=== PATIENT | female | born 1960 | race Caucasian/White ===

== ENCOUNTER 2016-09-20 08:29 | Emergency (ER) ==
--- NOTE | 2016-09-20 09:50 | PROVIDER DOCUMENTATION ---
HPI-Rash/Wound/ReCheck - General Chief Complaint: Insect Bite/Sting Stated Complaint: SPIDER BITE Time Seen by Provider: 09/20/16 09:06 Allergies/Adverse Reactions: Allergies Allergy/AdvReac Type Severity Reaction Status Date / Time metoclopramide HCl * Allergy Severe FATIGUE Verified 09/20/16 09:07 [From Reglan] levofloxacin Allergy ITCHING Verified 09/20/16 09:07 Home Medications: Home Medication List Medication Instructions Recorded Confirmed Last Taken Type Carisoprodol [Soma] 350 mg PO BID 06/03/12 09/20/16 09/20/16 History Insulin Aspart [Novolog] 12 unit SQ TID AC 06/03/12 09/20/16 09/20/16 History Metformin [Glucophage] 500 mg PO TID 06/23/14 09/20/16 09/20/16 History Insulin Glargine [Lantus] 30 unit SUBQ QHS 01/30/15 09/20/16 09/19/16 History Losartan Potassium 100 mg PO DAILY 09/28/15 09/20/16 09/20/16 History Aspirin 81 mg PO DAILY #100 chewtab 10/05/15 09/20/16 09/20/16 Rx Oxycodone HCl/Acetaminophen 1 tab PO TID PRN 01/30/16 09/20/16 03/08/16 05:30 History [Percocet 10-325 mg Tablet] Acyclovir [Zovirax] 800 mg PO 5XDAY #35 tablet 09/20/16 Unknown Rx - History of Present Illness-Dermatology Nature of Presenting Problem: pt presents with rash to left thorax x2 wks that is painful and is causing pain with deep inspiration. Denies fever or drainage. Location: reports: torso Body-Front/Back: 1 - vesicular rash Quality: reports: burning, painful Severity: reports: moderate Onset/Duration: reports: other (2wks) Timing: reports: constant Context/Associated Symptoms: reports: blisters, rash Exposure: reports: unknown cause Locality of [place]urance: Home Similar Symptoms Previously?: No Recently seen or treated by another doctor?: No Review of Systems - Adult - REVIEW OF SYSTEMS - ADULT Constitutional: denies: chills, fever Eyes: denies: blurred vision, double vision Cardiovascular: reports: no symptoms reported Respiratory: reports: no symptoms reported Integumentary: reports: rash, skin sores/ulcer All Other Systems: Reviewed and Negative Past History - Adult - PAST MEDICAL HISTORY-ADULT Review of Records: reports: Old Records Reviewed, Nursing Assessment Review, Medications Reviewed Major Childhood Illnesses: reports: denies history Cardiovascular: reports: HTN, other (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 heart) Gastrointestinal: reports: cancer (throat) Musculoskeletal: reports: arthritis, chronic pain Neurological: reports: headaches/migraines Endocrine/Immune: reports: Diabetes Additional History: cancer nose and throat - PRIOR SURGERIES/PROCEDURES Surgical/Procedure History: reports: appendectomy, cholecystectomy, hysterectomy , BTL - PRIOR HOSPITALIZATIONS Prior Hospitalizations: reports: none - IMMUNIZATION STATUS Childhood Immunizations: See Nurse Assessment Flu Vaccine: See Nurse Assessment - FAMILY HISTORY Family History: reviewed, not pertinent - SOCIAL HISTORY Smoking: non-smoker Living Situation: family Physical Exam-General - PHYSICAL EXAM-ADULT Initial Vital Signs Reviewed: Yes - CONSTITUTIONAL General Appearance: appears well, alert, no apparent distress - EYES Eyes: PERRL/EOMI, pink conjunctivae - HEAD, EARS, NOSE, MOUTH & THROAT HENMT: normocephalic/atraumatic, moist mucous membranes - NECK Neck: non-tender, full range of motion, supple - RESPIRATORY Respiratory: chest non-tender, lungs clear, normal breath sounds - CARDIOVASCULAR Cardiovascular: regular rate, rhythm, no edema - MUSCULOSKELETAL Back Exam: normal inspection, no CVA tenderness, no vertebral tenderness Extremity: normal gait, normal inspection - SKIN Integumentary: rash (vesicular rash on erythematous base located at left posterior thorax with respect to midline) - NEUROLOGIC Neurologic: grossly normal, no motor/sensory deficits - PSYCHIATRIC Psych/Mental Status: normal thought content, normal thought process Progress - PLAN OF CARE/RESULTS Progress/Plan/Lab Results: Vital Signs Temp Pulse Resp BP Pulse Ox 09/20/16 08:36 97.8 F 91 H 16 168/90 99 metoclopramide HCl * [From Reglan] Allergy (Severe, Verified 09/20/16 09:07) FATIGUE PANIC ATTACKS levofloxacin Allergy (Verified 09/20/16 09:07) ITCHING Carisoprodol [Soma] 350 mg PO BID 11/20/12 Insulin Aspart [Novolog] 12 unit SQ TID AC 06/03/12 Metformin [Glucophage] 500 mg PO TID 06/23/14 Insulin Glargine [Lantus] 30 unit SUBQ QHS 01/30/15 Losartan Potassium 100 mg PO DAILY 09/28/15 Aspirin 81 mg PO DAILY #100 chewtab 10/05/15 Oxycodone HCl/Acetaminophen [Percocet 10-325 mg Tablet] 1 tab PO TID PRN Departure - Departure Time of Disposition Order: 09:48 DIAGNOSIS: Shingles Qualifiers: Herpes zoster complications: without complications Qualified Code(s): B02.9 - Zoster without complications Disposition: HOME 01 Certified Medical Emergency: Emergent Condition: Good Additional Instructions: ED Follow Up Instructions: You have been treated by a care provider in the Emergency Department. These instructions are being provided to you so you can have an understanding of how to care for yourself upon discharge. Upon discharge from the Emergency Department, you are responsible for making arrangements for follow-up care by a physician of your choice. Take all prescribed medications as directed. Return to the Emergency Department immediately for any new or worsening symptoms. You may call the Physician Referral phone number at [phone] to obtain a list of Physicians who are taking new patients. Prescriptions: Acyclovir [Zovirax] 800 mg PO 5XDAY #35 tablet Attestation - Physician/ NILO Attestation Patient care was provided by Advanced Practice Provider:: Yes Advanced Practice Provider:: Melia Toussaint Advanced Practice Provider documentation review:: The Mid-level provider documentation, treatment plan and medical decision making was reviewed by the physician who agrees with all treatment and medical decision making by the MLP.
[2016-09-20 10:11] VITALS: BP 145/82
== END 2016-09-20 10:11 | disposition home or self-care (01) ==
LOC: ED 08:29
DX: B02.9 Zoster without complications (principal); R21 Rash and other nonspecific skin eruption; S20.422A Blister (nonthermal) of left back wall of thorax, initial encounter; M54.6 Pain in thoracic spine; I10 Essential (primary) hypertension; M19.90 Unspecified osteoarthritis, unspecified site; G89.29 Other chronic pain; E11.9 Type 2 diabetes mellitus without complications; Z79.899 Other long term (current) drug therapy; Z79.82 Long term (current) use of aspirin; Z79.4 Long term (current) use of insulin; Z85.20 Personal history of malignant neoplasm of unspecified respiratory organ
CPT/HCPCS: 99282

== ENCOUNTER 2019-05-27 13:29 | Inpatient (IN) ==
[2019-05-27] MEDS ORDERED: MORPHINE IV PRN (14:34)
[2019-05-27 14:49] LABS: BASO# 0.05 X1000 (0.0-0.2); BASO% 0.3 % (0.0-0.8); EOS# 0.03 X1000 (0.0-0.7); EOS% 0.2 % (0.0-10.0); HEMATOCRIT 48.9 % (37.0-47.0); HEMOGLOBIN 16.2 g/dL (12.0-16.0); IMM GRAN# 0.04 X1000 (0.0-0.04); IMM GRAN% 0.3 % (0.0-0.5); LYMPH# 2.13 X1000 (1.2-3.4); LYMPH% 14.9 % (20.5-51.1); MCH 27.7 PG (27-31); MCHC 33.1 g/dL (33-37); MCV 83.6 FL (81-99); MONO# 0.69 X1000 (0.11-0.59); MONO% 4.8 % (1.7-9.3); MPV 9.7 FL (7.4-10.4); NEUT# 11.39 X1000 (1.4-6.5); NEUT% 79.5 % (42.2-75.2); PLT 384 X1000 (130-400); RBC 5.85 XMIL (4.2-5.4); RDW 13.8 % (11.5-14.5); WBC 14.33 X1000 (4.8-10.8)
[2019-05-27] MEDS: ZOFRAN IV PRN (14:56)
[2019-05-27 15:45] LABS: URINE SOURCE CLEAN CATCH
--- NOTE | 2019-05-27 15:51 | Diag Imaging Result Doc PS360 ---
EXAM: FLAT/UPRIGHT ABD/1 VIEW CHEST HISTORY: Abd pain new patient TECHNIQUE: Three views COMPARISON: None. FINDINGS: The lungs are well expanded. No cardiomegaly. No pneumonia. No free air beneath the diaphragm. There are dilated small bowel loops in the mid abdomen with air-fluid levels. Small amount of air in the proximal colon. There are surgical clips in the lower abdomen and pelvis. IMPRESSION: Early or partial small bowel obstruction Electronically signed by Freedom Vo 05/27/2019 3:49 PM
[2019-05-27 15:52] LABS: UR EPITHELIAL CELLS <10 /HPF (<10); URINE BACTERIA NEGATIVE /HPF; URINE RBC <10 /HPF (<10); URINE WBC <10 /HPF (<10)
[2019-05-27 15:53] LABS: BILIRUBIN URINE NEGATIVE (NEGATIVE); BLOOD URINE NEGATIVE (NEGATIVE); COLOR YELLOW; GLUCOSE URINE >1000 mg/dL (NEGATIVE); KETONE URINE 80 mg/dL (NEGATIVE); LEUKOCYTES URINE NEGATIVE (NEGATIVE); NITRITE URINE NEGATIVE (NEGATIVE); PH URINE 5.5; PROTEIN URINE 100 mg/dL (NEGATIVE); SP GRAVITY URINE 1.042; TURBIDITY URINE CLEAR (CLEAR); UROBILINOGEN URINE NORMAL (NORMAL)
[2019-05-27] MEDS: PROTONIX IV SCH (15:57)
[2019-05-27] MEDS: SODIUM CHLORIDE 0.9% INJ SCH (15:57)
[2019-05-27] MEDS: SODIUM CHLORIDE 0.9% INJ PRN (15:57)
[2019-05-27] MEDS: LOVENOX SUBQ SCH (15:57)
[2019-05-27] MEDS: PHENERGAN IV PRN ×2 (15:57→21:53)
[2019-05-27 16:01] LABS: AGAP 21; ALB/GLOB RATIO 1.5; ALBUMIN 4.7 g/dL (3.5-5.0); ALKALINE PHOSPHATASE 99 U/L (32-104); BUN 12 mg/dL (8-22); CALCIUM 10.2 mg/dL (8.8-10.2); CHLORIDE 96 mmol/L (98-107); COSMO 291; CREATININE 0.8 mg/dL (0.5-0.9); ESTIMATED GFR > 60; GOT 36 U/L (10-30); GPT 32 U/L (10-36); POTASSIUM 4.7 mmol/L (3.5-5.1); SODIUM 136 mmol/L (136-145); TCO2 19 mmol/L (25-35); TOTAL BILIRUBIN 0.56 mg/dL (0.20-1.00); TOTAL PROTEIN 7.9 g/dL (6.3-8.3)
[2019-05-27 16:02] LABS: GLUCOSE 441 mg/dL (70-104)
--- NOTE | 2019-05-27 16:08 | Diag Imaging Result Doc PS360 ---
EXAM: CT ABDOMEN/PELVIS W/O CONTRAST INDICATION: Abd pain new patient TECHNIQUE: This exam was performed using automated exposure control, adjustment of mA or kV according to patient size, and/or use of iterative reconstruction technique. COMPARISON: 06/03/2012 FINDINGS: There are a few miniscule nodules along the major fissure on the left that statistically most likely represent noncalcified granulomata. There is a calcified granuloma in the spleen. There is no splenomegaly. There has been a prior cholecystectomy. There is trace ascites tracking around the liver. There is questionable minimal hepatic steatosis. The liver is grossly unremarkable, otherwise. There is pancreatic atrophy. The pancreas is unremarkable, otherwise. The adrenal glands appear normal. The kidneys are grossly unremarkable. The urinary bladder is largely nondistended and is unremarkable, otherwise. There has been a prior hysterectomy. There are a few moderately distended loops of small bowel in the mid abdomen and right lower quadrant. There is swirling of the small bowel in the right lower quadrant and there is a loop of small bowel that contains feculent material indicating slow bowel transit. There is surrounding mild stranding in this region. This is suggestive of an early small bowel obstruction. The transition point appears to be in the right lower quadrant. The colon is decompressed. The remainder of the GI tract is grossly unremarkable. IMPRESSION: 1.Findings suspicious for an early small bowel obstruction with a likely transition point in the right lower quadrant. Please see above discussion. 2.Other incidental/nonacute findings detailed above. Electronically signed by Marquis Kim 05/27/2019 4:05 PM
[2019-05-27] MEDS ORDERED: HUMULIN R IV ONE (16:28)
[2019-05-27] MEDS: HUMALOG SUBQ SCH ×2 (16:34→20:49)
[2019-05-27] MEDS: POTASSIUM CHLORIDE 10 MEQ in 1/2 NS 1,000 ML IV SCH (16:34)
[2019-05-27] MEDS ORDERED: DILAUDID PO PRN (16:38)
[2019-05-27] MEDS ORDERED: LEVAQUIN 750 MG/D5W 750 MG/150 ML IVPB IV SCH (17:00)
[2019-05-27 17:05] LABS: ALLEN TEST YES; BE -2.2 mmoll (-3.0-3.0); BLOOD TYPE ARTERIAL; HCO3-(ACT) 23.1 mmoll (20.0-26.0); METHB 0.9 % (0.0-1.5); PCO2(98.6) 34 mmHg (35-45); PO2(98.6) 72 mmHg (60-100); SAMPLE BLOOD; SAO2 96.6 % (95.0-100.0); THB 16.7 g/dL (11.5-17.4); pH(98.6) 7.41 (7.35-7.45)
[2019-05-27 17:07] LABS: MODALITY ROOM AIR
[2019-05-27] MEDS: ZOSYN 3.375 GM in NS 50 ML IV SCH (17:48)
[2019-05-27] MEDS: DILAUDID IV PRN (20:35)
--- NOTE | 2019-05-27 20:50 | HISTORY AND PHYSICAL ---
HISTORY OF PRESENT ILLNESS: Ms. Hdz, who is a 59-year-old white female, known case of insulin- dependent diabetes, comes to the office with severe abdominal pain, recurrent vomiting. She was in severe pain, was admitted. She has a history of uncontrolled diabetes. She also has chronic pain syndrome, and she had about 9 back surgeries in the past. She had a total knee replacement and had hysterectomy. Initially she had tubal ligation. She also had cholecystectomy done. SOCIAL HISTORY: She is a nonsmoker, does not drink. ALLERGIES: She is allergic to levofloxacin and metoclopramide. REVIEW OF SYSTEMS: Other than abdominal pain. She has severe nausea and has severe vomiting. No evidence of apparent constipation. No evidence of hematemesis. PHYSICAL EXAMINATION: VITAL SIGNS: Reveal temperature normal, pulse 106 per minute, respiratory rate 20 per minute, blood pressure 186/93. HEENT: Head normocephalic. Pupils PERRLA. Fundus examination not done. NECK: Supple. JVP normal. ENT examination unremarkable. There is no evidence of lymphadenopathy, thyroid enlargement, pedal edema, calf tenderness, anemia, cyanosis or clubbing. Pedal pulses well felt. BREAST EXAM: Not done. CHEST: Normal inspection. LUNGS: Clear to auscultation. PMI in the normal position. HEART: Sounds normal. No murmur, gallop or rub noted. ABDOMEN: Distended. Hernial orifices normal. Revealed the scars from previous surgery. No guarding, rigidity, but definite tenderness in the right lower quadrant as well as in the epigastric area. Bowel sounds are absent. RECTAL EXAM: Deferred. No free fluid noted.. CENTRAL NERVOUS SYSTEM: Higher functions. Patient is apprehensive. Cranial nerves normal. Motor and sensory system examination and deep tendon reflexes normal. Plantars downgoing. Skull and spine examination normal for age except for severe back pain. SLR positive. No cerebellar signs or signs of meningeal irritation. Locomotor exam unremarkable except for knee pains, and she has some dehydration. CLINICAL IMPRESSION: Severe abdominal pain, vomiting, possible small bowel obstruction. Patient has diabetes. We will try to control the diabetes. Also, I do not think she has diabetic ketoacidosis; however, we will continue to watch her sugar. cc: Olayinka Bullock MD
[2019-05-27] MEDS ORDERED: HUMULIN R SUBQ SCH (21:00)
--- NOTE | 2019-05-27 22:17 | Diag Imaging Result Doc PS360 ---
EXAM: CHEST/ABD TUBE PLACEMENT INDICATION: tube placement TECHNIQUE: One view COMPARISON: 05/27/2019 FINDINGS: The newly placed NG tube projects below the diaphragm and is assumed to be in the lumen of the stomach in the expected position. The chest is grossly stable as compared to the previous study. There are a few gas-distended loops of small bowel in the upper abdomen. IMPRESSION: Newly placed NG tube in the expected position as described. Electronically signed by Marquis Kim 05/27/2019 10:15 PM
[2019-05-28] MEDS: ZOSYN 3.375 GM in NS 50 ML IV SCH ×5 (01:12→22:30)
[2019-05-28] MEDS: DILAUDID IV PRN ×4 (01:12→22:02)
--- NOTE | 2019-05-28 03:45 | GENERAL SURGERY CONSULTATION ---
DATE: 05/27/2019 HISTORY OF PRESENT ILLNESS: This is a 59-year-old female with extensive surgical history. She has had open cholecystectomy, she has had an open hysterectomy and appendectomy, she has had a hiatal hernia repair. She presents with colicky abdominal pain the last 48 to 72 hours with some nausea and vomiting. CT scan was obtained that suggest partial obstruction. She has also, apparently, had episodes for which she was treated for this as an inpatient nonoperative with NG tube decompression in her past. She is admitted to Dr. Bullock and I was consulted for this. MEDICAL HISTORY: Hypertension, she has chronic pain, diabetes, gastroesophageal reflux disease. SURGICAL HISTORY: Numerous previous abdominal surgeries as noted in her HPI. SOCIAL HISTORY: History of smoking. No current alcohol. Her attentive is here with her. REVIEW OF SYSTEMS: A 10-point review of systems was performed and negative, otherwise that what is mentioned in HPI. FAMILY HISTORY: Reviewed and negative for cancer. PHYSICAL EXAMINATION: Vital signs: On exam, she is afebrile. Pulse low 100s, blood pressure 186/93, oxygen 95% on room air, she is 203 pounds. 5 feet 6 inches. General: She is alert, in no acute distress. HEENT: No scleral icterus. No cervical mass. Cardiovascular: Normal rate. Pulmonary: No increased work of breathing. Abdomen: Has a midline scar. No palpable hernias in the groins or in the midline. It is distended but soft. There is no peritonitis. She describes some tenderness in the lower quadrants, but she palpates her own abdomen. Integument: Warm and dry. Psychiatric: Appropriate affect. Neurologic: No gross deficits. Peripheral vascular: She does have lower extremity edema. LABS: White count is 14, hematocrit is 48, platelets 384,000. ABG was reviewed. Her lactate is 1.8. Creatinine 0.8. Her glucose was 441. LFTs are normal with a mild elevation in her AST. Urinalysis shows glucose but leukocytes. I reviewed her CT scan. ASSESSMENT/PLAN: A 59-year-old female with extensive surgical history. She clinically and on radiography appears to have a bowel obstruction. I have recommended NG tube decompression, IV fluids and bowel rest. We discussed the natural history of bowel obstruction, possibility of surgical intervention if no improvement or if her exam worsens. I have discussed with the nurses her care as well. We will continue to follow along. cc: MD Olayinka Mancia MD
[2019-05-28] MEDS: POTASSIUM CHLORIDE 10 MEQ in 1/2 NS 1,000 ML IV SCH ×2 (05:59→11:57)
[2019-05-28] MEDS: PHENERGAN IV PRN ×3 (06:00→16:54)
[2019-05-28] MEDS: HUMALOG SUBQ SCH ×4 (06:04→22:05)
[2019-05-28] MEDS ORDERED: HALL'S COUGH LOZENGE MT PRN (06:42)
[2019-05-28] MEDS: SODIUM CHLORIDE 0.9% INJ SCH ×2 (11:14→16:32)
--- NOTE | 2019-05-28 11:21 | PROGRESS NOTE ---
DATE: 05/28/2019 Ms. Hdz is feeling somewhat better. The NG tube aspiration is helping her. We are going to repeat her electrolytes today and tomorrow. Her general condition has improved. Abdomen is soft, less tender today. We do not have the results on the abdominal x-ray yet. Will continue with the current management. cc: Olayinka Bullock MD
[2019-05-28 12:37] LABS: AGAP 12; BUN 16 mg/dL (8-22); CALCIUM 8.9 mg/dL (8.8-10.2); CHLORIDE 97 mmol/L (98-107); COSMO 283; CREATININE 0.8 mg/dL (0.5-0.9); ESTIMATED GFR > 60; GLUCOSE 372 mg/dL (70-104); POTASSIUM 4.2 mmol/L (3.5-5.1); SODIUM 133 mmol/L (136-145); TCO2 24 mmol/L (25-35)
[2019-05-28] MEDS: LOVENOX SUBQ SCH (16:32)
[2019-05-28] MEDS: PROTONIX IV SCH (16:32)
--- NOTE | 2019-05-28 18:34 | GENERAL SURGERY PROGRESS NOTE ---
DATE: 05/28/2019 SUBJECTIVE: Feeling better with nasogastric tube decompression overnight, still intermittent colicky pains. She is passing gas. No fevers. OBJECTIVE: Vital signs: Pulse 83, blood pressure 124/59, oxygen saturation 92% on room air. General: She is alert in no acute distress. Cardiovascular: Normal rate. Pulmonary: No increased work of breathing. Abdomen: Soft, much less distended, nontender. No new labs this morning. ASSESSMENT AND PLAN: This is a 59-year-old female admitted with partial bowel obstruction. Clinically, it seems much improved with her NG tube putting out gastric and feculent-appearing output. We will continue NG tube decompression today. If she continues to have reliable bowel function and no pain, we will remove the tube tomorrow. Advance diet to clears. I have discussed the plan with the patient. She understands. cc: MD Olayinka Mancia MD
[2019-05-28] MEDS: ZOFRAN IV PRN (22:01)
[2019-05-29] MEDS: PHENERGAN IV PRN ×3 (00:25→15:02)
[2019-05-29] MEDS: POTASSIUM CHLORIDE 10 MEQ in 1/2 NS 1,000 ML IV SCH ×2 (03:04→09:02)
[2019-05-29] MEDS: DILAUDID IV PRN ×3 (03:07→19:59)
[2019-05-29] MEDS: ZOSYN 3.375 GM in NS 50 ML IV SCH ×3 (05:04→16:56)
[2019-05-29] MEDS: HUMALOG SUBQ SCH ×4 (06:46→20:01)
[2019-05-29 07:55] LABS: BASO# 0.05 X1000 (0.0-0.2); BASO% 0.4 % (0.0-0.8); EOS# 0.06 X1000 (0.0-0.7); EOS% 0.5 % (0.0-10.0); HEMATOCRIT 43.5 % (37.0-47.0); HEMOGLOBIN 14.1 g/dL (12.0-16.0); IMM GRAN# 0.03 X1000 (0.0-0.04); IMM GRAN% 0.3 % (0.0-0.5); LYMPH# 3.38 X1000 (1.2-3.4); LYMPH% 29.2 % (20.5-51.1); MCH 28.5 PG (27-31); MCHC 32.4 g/dL (33-37); MCV 87.9 FL (81-99); MONO# 0.63 X1000 (0.11-0.59); MONO% 5.4 % (1.7-9.3); MPV 9.9 FL (7.4-10.4); NEUT# 7.44 X1000 (1.4-6.5); NEUT% 64.2 % (42.2-75.2); PLT 320 X1000 (130-400); RBC 4.95 XMIL (4.2-5.4); RDW 14.3 % (11.5-14.5); WBC 11.59 X1000 (4.8-10.8)
[2019-05-29 08:09] LABS: AGAP 18; BUN 15 mg/dL (8-22); CALCIUM 8.8 mg/dL (8.8-10.2); CHLORIDE 96 mmol/L (98-107); COSMO 286; CREATININE 0.8 mg/dL (0.5-0.9); ESTIMATED GFR > 60; GLUCOSE 329 mg/dL (70-104); POTASSIUM 4.2 mmol/L (3.5-5.1); SODIUM 136 mmol/L (136-145); TCO2 22 mmol/L (25-35)
[2019-05-29] MEDS: SODIUM CHLORIDE 0.9% INJ PRN ×2 (08:59→15:02)
--- NOTE | 2019-05-29 12:20 | Diag Imaging Result Doc PS360 ---
EXAM: FLAT/UPRIGHT ABD/1 VIEW CHEST INDICATION: SBO TECHNIQUE: 3 views COMPARISON: 05/27/2019 FINDINGS: The NG tube tip projects below the diaphragm and is assumed to be in the lumen of the stomach. The small bowel distention seen previously appears to have improved. There is still patchy small bowel gas present. There is no evidence of large volume free abdominal gas. There is suggestion of mild subsegmental atelectasis at the lung bases. The lungs are grossly clear, otherwise. There is no discrete pleural fluid collection or pneumothorax. The cardiomediastinal silhouette and central vasculature are grossly unremarkable. IMPRESSION: Interval improvement of gaseous distention of small bowel. Electronically signed by Marquis Kim 05/29/2019 12:17 PM
--- NOTE | 2019-05-29 13:03 | PROGRESS NOTE ---
DATE: 05/29/2019 SUBJECTIVE: Ms. Hdz is feeling somewhat better. The NG tube return is still brownish and probably has some fecal material it looks like. OBJECTIVE: Lungs: Her lungs are clear. Abdomen: The abdomen is still operator gin in the right paraumbilical and supraumbilical area. LABS: Urine culture grew mixed devyn and CBC, showed decrease in white count 11.59, hemoglobin is 14.1. Electrolytes are normal. Blood sugar is still a little bit on the higher side. It runs around 300. ASSESSMENT AND PLAN: She has significant diabetes. We are keeping her on sliding scale so that we do not induce any hypoglycemia. I am going to order an abdominal x-ray on her today and repeat the electrolytes. cc: Olayinka Bullock MD
[2019-05-29] MEDS: SODIUM CHLORIDE 0.9% INJ SCH (15:02)
[2019-05-29] MEDS: PROTONIX IV SCH (15:02)
[2019-05-29] MEDS: LOVENOX SUBQ SCH (15:03)
--- NOTE | 2019-05-29 21:05 | GENERAL SURGERY PROGRESS NOTE ---
DATE: 05/29/2019 SUBJECTIVE: She is doing well. She has had flatus and a bowel movement. No more colicky pains. NG tube output has been minimal. No fevers. No tachycardia. OBJECTIVE: General: She is alert. Cardiovascular: Normal rate. Pulmonary: No increased work of breathing. Abdomen: Soft, nontender, nondistended. LABS: White count is 11, hematocrit is 43. Creatinine is 0.8. ASSESSMENT AND PLAN: A 59-year-old female with bowel obstructions. This has resolved clinically. We will remove her nasogastric tube, give her clear liquids, and slowly advance her diet over the next 24 hours. I have encouraged a soft diet over the next 2 weeks, and a low residual diet indefinitely. Dr. Wiggins is following my patients for the weekend. cc: MD Olayinka Mancia MD
[2019-05-30] MEDS: POTASSIUM CHLORIDE 10 MEQ in 1/2 NS 1,000 ML IV SCH ×2 (00:12→10:30)
[2019-05-30] MEDS: ZOSYN 3.375 GM in NS 50 ML IV SCH ×4 (00:13→21:04)
[2019-05-30] MEDS: PHENERGAN IV PRN ×3 (02:36→21:05)
[2019-05-30] MEDS: DILAUDID IV PRN ×3 (02:36→21:05)
[2019-05-30] MEDS: HUMALOG SUBQ SCH ×5 (06:05→21:10)
[2019-05-30 08:38] LABS: AGAP 12; BUN 8 mg/dL (8-22); CALCIUM 8.4 mg/dL (8.8-10.2); CHLORIDE 99 mmol/L (98-107); COSMO 278; CREATININE 0.6 mg/dL (0.5-0.9); ESTIMATED GFR > 60; GLUCOSE 233 mg/dL (70-104); POTASSIUM 3.7 mmol/L (3.5-5.1); SODIUM 136 mmol/L (136-145); TCO2 25 mmol/L (25-35)
--- NOTE | 2019-05-30 11:45 | PROGRESS NOTE ---
DATE: 05/30/2019 SUBJECTIVE: I am seeing Ms. Hdz as Dr. Bullock is off this week and I am covering for him. The patient says she has had 2 loose bowel movements this morning. She is feeling better overall. OBJECTIVE: Afebrile. Pulse 82, respirations 14, blood pressure 134/55, O2 saturation on room air 93%.CV: RRR without murmur. Lungs: Clear. Abdomen: Protuberant, soft. No pinpoint tenderness. Minimal diffuse tenderness. Extremities: No calf tenderness, cords or edema. Neurologic: Cranial nerves are intact. No focal deficits. LABS: Pending this morning. Urine culture showing mixed devyn. Flat and upright of the abdomen with 1 view of the chest yesterday revealed interval improvement of gaseous distention in the small bowel. ASSESSMENT: 1. Small bowel obstruction, resolving. 2. Insulin dependent diabetes mellitus. 3. Chronic pain syndrome. 4. Hypertension. PLAN: For now continue SSI. Reduce IV fluids. Ambulate patient. Increase her GI soft diet. Continue prophylaxis of DVT with Lovenox subcutaneous. Possibly discharge the patient home tomorrow if she continues to improve. cc: MD Olayinka Neville MD
--- NOTE | 2019-05-30 13:56 | PROGRESS NOTE ---
DATE: 05/30/2019 Ms. Hdz was getting a shower this morning. I spoke with her family. She is tolerating her diet and it has been advanced per Dr. Serrato to a GI soft diet. She is ambulating in her room and feels better. She is on IV Zosyn. Her heart rate is 80, blood pressure 147/68, O2 saturation 93%. She is afebrile. Her BUN and creatinine are 8 and 0.6. The rest of her electrolytes appeared to be within normal limits. cc: MD Olayinka Jeronimo MD
[2019-05-30] MEDS: PROTONIX IV SCH (14:28)
[2019-05-30] MEDS: LOVENOX SUBQ SCH (14:28)
[2019-05-30] MEDS: SODIUM CHLORIDE 0.9% INJ SCH (14:28)
[2019-05-31] MEDS: ZOSYN 3.375 GM in NS 50 ML IV SCH ×2 (03:03→08:20)
[2019-05-31] MEDS: HUMALOG SUBQ SCH ×2 (06:09→11:06)
[2019-05-31 07:27] VITALS: BP 156/68
[2019-05-31 07:32] LABS: BASO# 0.04 X1000 (0.0-0.2); BASO% 0.6 % (0.0-0.8); EOS% 4.2 % (0.0-10.0); HEMATOCRIT 40.3 % (37.0-47.0); HEMOGLOBIN 13.5 g/dL (12.0-16.0); IMM GRAN# 0.09 X1000 (0.0-0.04); IMM GRAN% 1.3 % (0.0-0.5); LYMPH# 2.65 X1000 (1.2-3.4); LYMPH% 37.5 % (20.5-51.1); MCH 28.4 PG (27-31); MCHC 33.5 g/dL (33-37); MCV 84.8 FL (81-99); MONO# 0.57 X1000 (0.11-0.59); MONO% 8.1 % (1.7-9.3); MPV 10.5 FL (7.4-10.4); NEUT# 3.41 X1000 (1.4-6.5); NEUT% 48.3 % (42.2-75.2); PLT 207 X1000 (130-400); RBC 4.75 XMIL (4.2-5.4); RDW 13.5 % (11.5-14.5); WBC 7.06 X1000 (4.8-10.8)
[2019-05-31 07:46] LABS: AGAP 16; BUN 7 mg/dL (8-22); CALCIUM 8.9 mg/dL (8.8-10.2); CHLORIDE 98 mmol/L (98-107); COSMO 285; CREATININE 0.7 mg/dL (0.5-0.9); ESTIMATED GFR > 60; GLUCOSE 309 mg/dL (70-104); POTASSIUM 4.1 mmol/L (3.5-5.1); SODIUM 138 mmol/L (136-145); TCO2 24 mmol/L (25-35)
[2019-05-31] MEDS: DILAUDID IV PRN (08:25)
[2019-05-31] MEDS: POTASSIUM CHLORIDE 10 MEQ in 1/2 NS 1,000 ML IV SCH (08:28)
--- NOTE | 2019-05-31 14:10 | PROGRESS NOTE ---
DATE: 05/31/2019 SUBJECTIVE: Patient feeling better. She is eating some and stooling. OBJECTIVE: Afebrile. Vital signs stable.CV: RRR without murmur. Lungs: CTA. Abdomen: Protuberant, soft, NT, ND. No mass. No HSM. Extremities: No edema. Neurologic: Cranial nerves are intact. No focal deficits. LABORATORY DATA: Shows normal BMP and CBC also normal. ASSESSMENT: 1. SBO, resolved. 2. Insulin dependent diabetes mellitus. 3. Chronic pain syndrome. 4. Hypertension. PLAN: Discharge patient home on GI soft diet with home medications. She will follow up with Dr. Bullock in 3 to 5 days and she may need additional studies with possible colonoscopy later on. cc: MD Olayinka Neville MD
--- NOTE | 2019-05-31 15:18 | DISCHARGE SUMMARY ---
ADMISSION DATE: 05/27/2019 DISCHARGE DATE: 05/31/2019 ADMITTING DIAGNOSIS: Small bowel obstruction. PRINCIPAL PROCEDURES: Abdominal and pelvic CT scan on 05/27/2019. NG tube placement on 05/27/2019. DISCHARGE MEDICATIONS: She is to return to her home medications. DISCHARGE DISABILITIES: Full. DISCHARGE DISPOSITION: She will follow up with her primary care physician, Dr. Bullock. DISCHARGE DIET: Regular. HOSPITAL COURSE: Ms. Marika Hdz is a 59-year-old white female who has a history of previous abdominal surgery. She was admitted on 05/27/[address] scan suggested an early small- bowel obstruction. Initially, she was treated conservatively with an NG tube, NPO and IV fluids. Dr. Claudio Huston was consulted from general surgery and followed along with her. With conservative treatment, she improved and an x-ray on 05/27/2019 showed improvement of her gaseous distention of her small bowel. Her diet was started and on 05/31/2019 she was tolerating a mechanical soft diet. Her abdomen was soft without tenderness. She had some bowel activity and wanted to be discharged home under the care of her family. At discharge, her heart rate was 70, blood pressure 156/68, O2 saturation 96%. She was afebrile. She had been on IV Zosyn. She knows to contact us with any increasing abdominal pain, abdominal cramping, distention, or fever. cc: MD Olayinka Jeronimo MD
--- NOTE | 2019-06-06 13:20 | DISCHARGE SUMMARY ---
ADMISSION DATE: 05/27/2019 DISCHARGE DATE: 05/31/2019 HOSPITAL COURSE: Ms. Hdz was admitted with abdominal pain and vomiting. CT scan of the abdomen and pelvis revealed findings suspicious for early small bowel obstruction with a likely transition point in the right lower quadrant. Her abdominal x-rays also revealed some distended coils. The report says that she had internal improvement of gaseous distention in the small bowel. She had a surgical consult with Dr. Huston, who suggested NG tube aspiration and IV fluids were continued. Later on, she was allowed clear liquids. NG tube was removed and she was discharged by Dr. Wiggins over the weekend. FINAL DIAGNOSIS: Small bowel obstruction. cc: Olayinka Bullock MD
== END 2019-05-31 12:40 | disposition home or self-care (01) | DRG 390 ==
LOC: DIRADM 13:29 → 3N 14:01
PROVIDERS: ADMIT Internal Medicine; ATTEND Internal Medicine